=== PATIENT | female | born 1960 | race American Indian/Alaskan Native ===

== ENCOUNTER 2020-04-03 23:00 | Emergency (ER) | payer BC ==
[2020-04-03] MEDS ORDERED: Nitroglycerin 0.4 MG Tab.SL SL PRN (23:31)
--- NOTE | 2020-04-04 00:13 | EDM.PDOC ---
ED HPI GENERAL MEDICAL PROBLEM - General Chief Complaint: Chest Pain Stated Complaint: CHEST PRESSURE & SOB Time Seen by Provider: 04/03/20 23:05 Source of Information: Reports: Patient History Limitations: Reports: No Limitations - History of Present Illness INITIAL COMMENTS - FREE TEXT/NARRATIVE: Is a 59-year-old female. Tonight after eating and then going to [facility] and [employer] around [facility] she developed tightness in the center of her chest that went into her back. It did not go into her neck or her jaw or her shoulders or down her arms. She did feel like she was somewhat short of breath during this time but there was no sweating. She did go to the bathroom and have a bowel movement after which she states she felt better. She does have a history of systolic hy pertension with her blood pressure systolic running above the 200s diastolic in the 60s and 70s. She is on 3 blood pressure medications and also some isosorbide. She does have a history of quadruple bypass about 4 to [address] Dave at [facility] in [place]. Is any recent illnesses colds coughs or congestion. Epigastric Pain Score (Numeric/FACES): 2 - Related Data Allergies Allergy/AdvReac Type Severity Reaction Status Date / Time cefaclor [From [facility]] Allergy Severe Hives Verified 04/03/20 23:10 Sulfa (Sulfonamide Allergy Severe Hives Verified 04/03/20 23:10 Antibiotics) Home Meds: Home Meds Aspirin [Aspirin EC] 81 mg PO DAILY 04/03/20 [History] Furosemide 40 mg PO DAILY 04/03/20 [History] Insulin Aspart [NovoLOG] 5 - 8 unit SQ TID 04/03/20 [History] Insulin Glarg,Human.Rec.Analog [Lantus Solostar] 0 unit SUBCUT BEDTIME 04/03/20 [History] Isosorbide Mononitrate [Isosorbide Mononitrate ER] 60 mg PO DAILY 04/03/20 [History] Metoprolol Tartrate 100 mg PO DAILY 04/03/20 [History] Omeprazole 20 mg PO DAILY 04/03/20 [History] Ubidecarenone [Co Q-10] 100 mg PO DAILY 04/03/20 [History] lisinopriL [Lisinopril] 40 mg PO DAILY 04/03/20 [History] Past Medical History Cardiovascular History: Reports: High Cholesterol, Hypertension Gastrointestinal History: Reports: GERD Endocrine/Metabolic History: Reports: Diabetes, Type II - Past Surgical History Cardiovascular Surgical History: Reports: Coronary Artery Bypass, Coronary Artery Stent Social & Family History - Tobacco Use Tobacco Use Status *Q: Never Tobacco User - Recreational Drug Use Recreational Drug Use: No ED ROS GENERAL - Review of Systems Review Of Systems: See Below Constitutional: Denies: Fever, Chills HEENT: Reports: No Symptoms Respiratory: Reports: Shortness of Breath. Denies: Cough Cardiovascular: Reports: Chest Pain, Edema Endocrine: Reports: No Symptoms GI/Abdominal: Denies: Abdominal Pain, Diarrhea, Nausea, Vomiting : Reports: No Symptoms Musculoskeletal: Reports: No Symptoms Skin: Reports: No Symptoms Neurological: Reports: No Symptoms Psychiatric: Reports: No Symptoms Hematologic/Lymphatic: Reports: No Symptoms ED EXAM, GENERAL - Physical Exam Exam: See Below Exam Limited By: No Limitations General Appearance: Alert, WD/WN, No Apparent Distress Eye Exam: Bilateral Eye: Normal Inspection Ears: Normal External Exam, Normal Canal, Normal TMs Nose: Normal Inspection Throat/Mouth: Normal Lips, Normal Voice, No Airway Compromise Head: Normocephalic Neck: Supple Respiratory/Chest: No Respiratory Distress, Lungs Clear, Normal Breath Sounds, Other (Palpation of her chest does not seem to aggravate her symptoms.) Cardiovascular: Regular Rate, Rhythm, No Murmur GI/Abdominal: Soft, Non-Tender Back Exam: Normal Inspection, Full Range of Motion Extremities: Normal Inspection, Normal Range of Motion, Pedal Edema Neurological: Alert, Oriented Psychiatric: Normal Affect, Normal Mood Skin Exam: Warm, Dry #1 Interpretation EKG Date: 04/03/20 Time: 23:20 EKG Interpretation Comments: EKG shows a sinus bradycardia rate of 58. There are some T wave changes suggesting possible ischemia but there is no acute ST elevation. She does have a history of quadruple bypass and I have no old EKGs to compare this one to. Course - Vital Signs Last Recorded V/S: Last Vital Signs Temp 97.0 F 04/03/20 23:07 Pulse 61 04/03/20 23:07 Resp 18 04/03/20 23:07 BP 246/73 H 04/03/20 23:37 Pulse Ox 94 L 04/03/20 23:07 - Orders/Labs/Meds Orders: Active Orders 24 hr Category Date Time Status EKG 12 Lead [EKG Documentation Completion] [RC] STAT Care 04/03/20 23:31 Active Ang Chest [CT] Stat Exams 04/04/20 01:25 Taken CTA Abdomen W & W/O Contrast [Ang Abdomen] [CT] Stat Exams 04/04/20 01:25 Taken CXR [Chest 1V Frontal] [CR] Stat Exams 04/03/20 23:30 Taken Alum Hydrox/Mag Hydrox/Simeth [Mag-Al Plus] 30 ml Med 04/04/20 04:08 Ordered Lidocaine 2% [Xylocaine 2% Viscous] 15 ml PO ONETIME Sodium Chloride 0.9% [Normal Saline] 100 ml Med 04/04/20 02:30 Active IV ASDIRECTED Sodium Chloride 0.9% [Normal Saline] 100 ml Med 04/04/20 02:45 Active IV ASDIRECTED Medication Orders Sodium Chloride (Normal Saline) 100 mls @ 100 mls/hr IV ASDIRECTED [facility] Last Admin: 04/04/20 02:40 Dose: 188.4 mls/hr Documented by: Infusion: 04/04/20 02:40 Dose: 188.4 mls/hr Documented by: Admin: 04/04/20 02:38 Dose: 188.4 mls/hr Documented by: Infusion: 04/04/20 02:38 Dose: 188.4 mls/hr Documented by: Admin: 04/04/20 02:31 Dose: 188.4 mls/hr Documented by: ONEIGIN Sodium Chloride (Normal Saline) 100 mls @ 188 mls/hr IV ASDIRECTED [facility] Labs: Laboratory Tests 04/03/20 04/03/20 04/04/20 Range/Units 23:35 23:35 01:30 WBC 6.13 (3.98-10.04) K/mm3 RBC 4.56 (3.98-5.22) M/mm3 Hgb 11.9 (11.2-15.7) gm/dl Hct 37.7 (34.1-44.9) % MCV 82.7 (79.4-94.8) fl MCH 26.1 (25.6-32.2) pg MCHC 31.6 L (32.2-35.5) g/dl RDW Std Deviation 42.7 (36.4-46.3) fL Plt Count 204 (182-369) K/mm3 MPV 11.9 (9.4-12.3) fl Neut % (Auto) 64.4 (34.0-71.1) % Lymph % (Auto) 22.7 (19.3-51.7) % Caroline % (Auto) 6.5 (4.7-12.5) % Eos % (Auto) 5.7 (0.7-5.8) Baso % (Auto) 0.5 (0.1-1.2) % Neut # (Auto) 3.95 (1.56-6.13) K/mm3 Lymph # (Auto) 1.39 (1.18-3.74) K/mm3 Caroline # (Auto) 0.40 H (0.24-0.36) K/mm3 Eos # (Auto) 0.35 (0.04-0.36) K/mm3 Baso # (Auto) 0.03 (0.01-0.08) K/mm3 Sodium 139 (136-145) mEq/L Potassium 4.1 (3.5-5.1) mEq/L Chloride 105 (98-107) mEq/L Carbon Dioxide 27 (21-32) mEq/L Anion Gap 11.1 (5-15) BUN 25 H (7-18) mg/dL Creatinine 1.4 H (0.55-1.02) mg/dL Est Cr Clr Drug Dosing 35.35 mL/min Estimated GFR (MDRD) 38 (>60) mL/min BUN/Creatinine Ratio 17.9 (14-18) Glucose 190 H (74-106) mg/dL Calcium 9.4 (8.5-10.1) mg/dL Total Bilirubin 0.3 (0.2-1.0) mg/dL AST 15 (15-37) U/L ALT 19 (14-59) U/L Alkaline Phosphatase 151 H (46-116) U/L Troponin I < 0.017 < 0.017 (0.00-0.056) ng/mL NT-Pro-B Natriuret Pep (0-125) pg/mL Total Protein 6.9 (6.4-8.2) g/dl Albumin 2.7 L (3.4-5.0) g/dl Globulin 4.2 gm/dL Albumin/Globulin Ratio 0.6 L (1-2) 04/04/20 Range/Units 01:30 WBC (3.98-10.04) K/mm3 RBC (3.98-5.22) M/mm3 Hgb (11.2-15.7) gm/dl Hct (34.1-44.9) % MCV (79.4-94.8) fl MCH (25.6-32.2) pg MCHC (32.2-35.5) g/dl RDW Std Deviation (36.4-46.3) fL Plt Count (182-369) K/mm3 MPV (9.4-12.3) fl Neut % (Auto) (34.0-71.1) % Lymph % (Auto) (19.3-51.7) % Caroline % (Auto) (4.7-12.5) % Eos % (Auto) (0.7-5.8) Baso % (Auto) (0.1-1.2) % Neut # (Auto) (1.56-6.13) K/mm3 Lymph # (Auto) (1.18-3.74) K/mm3 Caroline # (Auto) (0.24-0.36) K/mm3 Eos # (Auto) (0.04-0.36) K/mm3 Baso # (Auto) (0.01-0.08) K/mm3 Sodium (136-145) mEq/L Potassium (3.5-5.1) mEq/L Chloride (98-107) mEq/L Carbon Dioxide (21-32) mEq/L Anion Gap (5-15) BUN (7-18) mg/dL Creatinine (0.55-1.02) mg/dL Est Cr Clr Drug Dosing mL/min Estimated GFR (MDRD) (>60) mL/min BUN/Creatinine Ratio (14-18) Glucose (74-106) mg/dL Calcium (8.5-10.1) mg/dL Total Bilirubin (0.2-1.0) mg/dL AST (15-37) U/L ALT (14-59) U/L Alkaline Phosphatase (46-116) U/L Troponin I (0.00-0.056) ng/mL NT-Pro-B Natriuret Pep 2771 H (0-125) pg/mL Total Protein (6.4-8.2) g/dl Albumin (3.4-5.0) g/dl Globulin gm/dL Albumin/Globulin Ratio (1-2) Meds: Medications Generic Name Dose Route Start Last Admin Trade Name Freq PRN Reason Stop Dose Admin Sodium Chloride 100 mls @ 100 mls/hr 04/04/20 02:30 04/04/20 02:40 Normal Saline IV 188.4 mls/hr ASDIRECTED FATOU Administration Sodium Chloride 100 mls @ 188 mls/hr 04/04/20 02:45 Normal Saline IV ASDIRECTED FATOU Discontinued Medications Generic Name Dose Route Start Last Admin Trade Name Freq PRN Reason Stop Dose Admin Iopamidol 100 ml 04/04/20 02:29 04/04/20 02:31 Isovue-370 (76%) IVPUSH 04/04/20 02:30 100 ml ONETIME ONE Administration Iopamidol 85 ml 04/04/20 02:35 04/04/20 02:37 Isovue-370 (76%) IVPUSH 04/04/20 02:36 85 ml ONETIME ONE Administration Nitroglycerin 0.4 mg 04/03/20 23:31 04/03/20 23:37 Nitrostat SL 0.4 mg Q5M PRN Administration Chest Pain - Radiology Interpretation Free Text/Narrative:: Chest x-ray does not show any acute infiltrates. CT angio of the chest and abdomen looking at the aorta does not show any aneurysm or acute aortic dissection. - Re-Assessments/Exams Free Text/Narrative Re-Assessment/Exam: 04/04/20 04:10 02 the patient at length regarding her test results and her to cardiac enzymes were normal. Indicating that she does have a little bit of fluid in her lungs but that is why she is on Lasix. She still complains of a slight amount of burning in the epigastric area but no chest pressure she is not been short of breath she has been very comfortable. We talked about her calling Dr. Dave on Monday to be evaluated for her heart since it has been 5 years now since she has had the quadruple bypass surgery. She states she will call him on Monday and if in the meantime there is any problems she will go to the nearest ER for evaluation. Departure - Departure Time of Disposition: 04:14 Disposition: Home, Self-Care 01 Condition: Fair Clinical Impression: Cardiovascular disease, Status post cardiac revascularization with bypass aortocoronary anastomosis of five coronary vessels Chest pain Qualifiers: Chest pain type: unspecified Qualified Code(s): R07.9 - Chest pain, unspecified Instructions: Angina, [id number] Referrals: Janeth French [employer]CH[employer] TE[employer] MANAGER [Primary Care Provider] - Forms: ED Department Discharge Additional Instructions: You must call Dr. Dave on Monday to be evaluated for your heart, the pressure you were having Monday could very well have been from your heart even though you did not have a heart attack, you could be having episodes of angina which means that your heart is lacking oxygen and it hurts, over the rest of the weekend do nothing strenuous do not go on long walks do not do any heavy lifting just take it easy at home and use your nitroglycerin if you need to, return to the ER or go to an ER if you have further symptoms Sepsis Event Note (ED) - Evaluation Sepsis Screening Result: No Definite Risk - Focused Exam Vital Signs: Vital Signs Temp Pulse Resp BP BP Pulse Ox 04/03/20 23:37 246/73 H 04/03/20 23:07 97.0 F 61 18 252/80 H 94 L - My Orders Last 24 Hours: My Active Orders 04/03/20 23:30 CXR [Chest 1V Frontal] [CR] Stat 04/03/20 23:31 EKG 12 Lead [EKG Documentation Completion] [RC] STAT 04/04/20 01:25 Ang Chest [CT] Stat CTA Abdomen W & W/O Contrast [Ang Abdomen] [CT] Stat 04/04/20 02:30 Sodium Chloride 0.9% [Normal Saline] 100 ml IV ASDIRECTED 04/04/20 02:45 Sodium Chloride 0.9% [Normal Saline] 100 ml IV ASDIRECTED 04/04/20 04:08 Alum Hydrox/Mag Hydrox/Simeth [Mag-Al Plus] 30 ml Lidocaine 2% [Xylocaine 2% Viscous] 15 ml PO ONETIME - Assessment/Plan Last 24 Hours: My Active Orders 04/03/20 23:30 CXR [Chest 1V Frontal] [CR] Stat 04/03/20 23:31 EKG 12 Lead [EKG Documentation Completion] [RC] STAT 04/04/20 01:25 Ang Chest [CT] Stat CTA Abdomen W & W/O Contrast [Ang Abdomen] [CT] Stat 04/04/20 02:30 Sodium Chloride 0.9% [Normal Saline] 100 ml IV ASDIRECTED 04/04/20 02:45 Sodium Chloride 0.9% [Normal Saline] 100 ml IV ASDIRECTED 04/04/20 04:08 Alum Hydrox/Mag Hydrox/Simeth [Mag-Al Plus] 30 ml Lidocaine 2% [Xylocaine 2% Viscous] 15 ml PO ONETIME
[2020-04-04] MEDS ORDERED: Iopamidol 755 Mg/ML 100 ML Bottle IVPUSH ONE ×2 (02:29→02:35)
[2020-04-04] MEDS: Sodium Chloride 0.9% 100 ML IV SCH ×3 (02:31→02:40)
[2020-04-04] MEDS ORDERED: Sodium Chloride 0.9% 100 ML IV SCH (02:45)
[2020-04-04] MEDS ORDERED: Alum Hydrox/Mag Hydrox/Simeth 30 ML, Lidocaine 2% 15 ML PO ONE ×2 (04:08)
--- NOTE | 2020-04-04 12:10 | CT ---
CT abdomen Technique: Multiple axial sections were obtained from above the dome of the diaphragm inferiorly to the mid to lower kidneys. Intravenous contrast was utilized. Reconstructed coronal and axial images were obtained. Findings: Slight atelectasis is seen within the lingula. Sternotomy wires are present. Liver contains no focal abnormality. Numerous calcified gallstones are seen within the gallbladder. Spleen size is normal. Adrenal glands show no nodule. Visualized pancreas is normal. Aorta shows atherosclerotic change without aneurysm. Very small low density area is partially seen within the lower left kidney compatible with minimal cyst. Celiac axis shows wall calcifications without discrete stenosis. Superior mesenteric artery shows calcification without definite focal stenosis. Renal arteries also show areas of stenosis without definite acute stenosis. Bone window settings were reviewed show scattered degenerative change within the spine. Impression: 1. Slight lingular atelectasis. 2. Multiple calcified gallstones within the gallbladder. 3. Very minimal cyst within the lower left kidney. 4. Nothing acute is appreciated on CT study of the upper abdomen. Diagnostic code #2 I agree with preliminary report from [facility], finalized on 04/04/20, 4:33 AM Central Daylight Time
--- NOTE | 2020-04-04 12:12 | CR ---
Chest: Portable view of the chest was obtained. Comparison: No previous study is available. Heart size appears at the upper limits of normal. Slight areas of atelectasis are seen. Lungs otherwise are clear. Bony structures are grossly intact. Sternotomy wires are seen. Impression: 1. Heart size is slightly improved with sternotomy wires. 2. Mild areas of atelectasis. Diagnostic code #2 I mildly disagree with preliminary report from [facility], finalized on 04/04/20, 1:48 AM [employer]
--- NOTE | 2020-04-05 08:49 | CT ---
CT chest Technique: Multiple axial sections were obtained from above the lung apices inferiorly through the lung bases. Intravenous contrast was utilized as a pulmonary angina protocol. Comparison: Prior chest x-ray performed earlier on same day. Findings: Pulmonary arteries are well opacified. No filling defects are seen to indicate pulmonary embolism. Atherosclerotic calcification is seen within the thoracic aorta with no aneurysm. Previous sternotomy is seen. Diffuse coronary artery calcification is noted. Heart is mildly enlarged. Calcified gallstones are seen within the gallbladder. Mild areas of atelectasis are seen within the right middle lobe and lingula. No acute parenchymal change is appreciated. No pleural effusions are seen. Impression: 1. No findings of pulmonary embolism. 2. Other nonacute findings as described above. 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
== END 2020-04-04 04:35 | disposition home or self-care (01) ==
LOC: JD.ED 23:00
DX: I25.10 Atherosclerotic heart disease of native coronary artery without angina pectoris (principal); R10.13 Epigastric pain; I10 Essential (primary) hypertension; K21.9 Gastro-esophageal reflux disease without esophagitis; Z95.1 Presence of aortocoronary bypass graft; E11.9 Type 2 diabetes mellitus without complications; Z88.1 Allergy status to other antibiotic agents; Z88.2 Allergy status to sulfonamides; Z79.82 Long term (current) use of aspirin; Z79.4 Long term (current) use of insulin; Z79.899 Other long term (current) drug therapy
CPT/HCPCS: 36415; 71045; 71275; 74175; 80053; 83880; 84484; 85025; 93005; 99285; A9270; Q9967; 93010; 99284